=== PATIENT | male | born 1985 | race Caucasian/White ===

== ENCOUNTER 2023-02-14 16:31 | Emergency (ER) | payer OTHER ==
[~2023-02-14] VITALS: Ht 182.9 cm; Wt 74.8 kg
[2023-02-14 16:38] VITALS: O2SAT 98
[2023-02-14] MEDS ORDERED: IV NORMAL SALINE 1000 ML BAG IV ONE (16:45)
[2023-02-14 17:37] LABS: *BILIRUBIN,URIN NEGATIVE (NEGATIVE); *BLOOD, URINE NEGATIVE (NEGATIVE); *CLARITY,URINE CLEAR (CLEAR); *COLOR,URINE YELLOW (YELLOW); *KETONES,URINE NEGATIVE (NEGATIVE); *PROTEIN,URINE NEGATIVE (NEGATIVE); *UROBILINOGEN,URINE 0.2 E.U./dl (NORMAL); LEUKOCYTE ESTERASE ,URINE NEGATIVE (NEGATIVE); NITRITE, URINE NEGATIVE (NEGATIVE); PH,URINE 7.5 (5.0-8.0); UGLUCOSE NEGATIVE (NEGATIVE)
[2023-02-14 17:50] LABS: *AMPHETAMINE, URINE NEGATIVE (NEGATIVE); *BARBITURATE, URINE NEGATIVE (NEGATIVE); *BENZODIAZEPINE, URINE NEGATIVE (NEGATIVE); *CANNABINOID, URINE NEGATIVE (NEGATIVE); *COCCAINE, URINE POSITIVE (NEGATIVE); *OPIATE, URINE NEGATIVE (NEGATIVE); *PHENCYCLIDINE SCREEN,URINE NEGATIVE (NEGATIVE); FENTANYL, URINE POSITIVE (NEGATIVE)
[2023-02-14 18:03] LABS: BASOPHILS % (AUTO) 0.5 % (0.0-2.0); EOSINOPHILS # (AUTO) 0.3 K/uL (0.0-0.7); EOSINOPHILS % (AUTO) 3.5 % (0.0-7.0); HEMOGLOBIN 12.9 g/dL (12.5-16.3); LYMPHOCYTES # (AUTO) 1.2 K/uL (0.8-4.8); LYMPHOCYTES % (AUTO) 15.4 % (20.5-51.5); MEAN CORPUSCULAR HEMOGLOBIN 30.7 uug (23.8-33.4); MEAN CORPUSCULAR HGB CONC 33 g/dL (32.5-36.3); MEAN CORPUSCULAR VOLUME 92.8 fL (73.0-96.2); MONOCYTES # (AUTO) 0.6 K/uL (0.1-1.30); MONOCYTES % (AUTO) 7.7 % (0.0-11.0); NEUTROPHILS # (AUTO) 5.7 K/uL (1.8-8.9); NEUTROPHILS % (AUTO) 72.9 % (38.5-71.5); PLATELET COUNT (AUTO) 288 K/uL (152-348); RED BLOOD CELL COUNT(AUTO) 4.21 MIL/uL (4.06-5.63); RED CELL DISTRIBUTION WIDTH 13.9 % (12.1-16.2); WHITE BLOOD COUNT (AUTO) 7.8 K/uL (3.6-10.2)
[2023-02-14 18:07] LABS: DIFFERENTIAL COMMENT 1
[2023-02-14 18:11] LABS: CALCIUM 8.5 mg/dL (8.5-10.1); CREATININE 0.8 mg/dL (0.6-1.3); POTASSIUM 4.2 mmol/L (3.5-5.1)
[2023-02-14 18:15] LABS: ACETAMINOPHEN < 2.0 ug/mL (10-30)
[2023-02-14 18:17] LABS: ALBUMIN 3.2 g/dL (3.4-5.0); BILIRUBIN,TOTAL 0.2 mg/dL (0.2-1.0); TOTAL PROTEIN, SERUM 6.3 g/dL (6.4-8.2)
[2023-02-14 18:18] LABS: ETHANOL < 3 MG/DL (0-10)
== END 2023-02-14 18:26 | disposition home or self-care (01) ==
LOC: ER 16:31
DX: F19.90 Other psychoactive substance use, unspecified, uncomplicated (principal)
CPT/HCPCS: 80053; 81003; 85025; 36415; 99283; 80299; 80320; 80307; J7040; A4663; G0480